=== PATIENT | female | born 2000 | race Caucasian/White ===

== ENCOUNTER 2022-03-05 01:36 | Observation (INO) | payer OTHER ==
[~2022-03-05] VITALS: Ht 162.6 cm; Wt 116.6 kg
[2022-03-05] MEDS ORDERED: PREN-176 PO (02:24)
[2022-03-05 03:07] LABS: CLARITY URINE CLEAR (CLEAR); COLOR URINE YELLOW (YELLOW); KETONES URINE TRACE (NEGATIVE); LEUKOCYTE ESTERASE URINE TRACE (NEGATIVE); NITRITE URINE NEGATIVE (NEGATIVE); OCCULT BLOOD URINE NEGATIVE (NEGATIVE); PROTEIN URINE TRACE (NEGATIVE); SPECIFIC GRAVITY URINE 1.033 (1.005-1.030)
[2022-03-05] MEDS: LACTATED RINGERS 1,000 ML IV SCH ×2 (03:11→04:51)
[2022-03-05] MEDS ORDERED: ACETAMINOPHEN 325MG TABLET PO SCH (04:15)
[2022-03-05] MEDS: TERBUTALINE SULFATE 1MG/ML VIAL SUBCUT PRN ×3 (04:29→06:35)
== END 2022-03-05 07:45 | disposition home or self-care (01) ==
LOC: 8 EST LDRP 01:36
PROVIDERS: ADMIT Obstetrics & Gynecology; ATTEND Obstetrics & Gynecology
DX: O23.43 Unspecified infection of urinary tract in pregnancy, third trimester (principal); O60.03 Preterm labor without delivery, third trimester; Z3A.35 35 weeks gestation of pregnancy
CPT/HCPCS: 81003; 96360; 96361; 96372; G0378; J3105; 59025; 99281; J7120